=== PATIENT | female | born 1965 | race Caucasian/White ===

== ENCOUNTER → 2017-08-06 | Outpatient (CLI) | payer OTHER ==
[~2017-08-06] MED LIST: ALBU90OI6 INH; Androgel2.5 GM TOP; FLONASE ALLERG9.9 ML; FLUT1DIS8 INH; Imitrex25 MG PO; ONDA4ODT MM; PROGESTERONE100 MG PO; Premarin0.3 MG PO; QVAR REDIHALE10.6 G1 INH; TRAM50 PO; ZOLP10 PO
[2017-08-06 18:14] LABS: BASOPHILS ABSOLUTE AUTO 0.09 K/mm3 (0.00-0.23); BASOPHILS PERCENT AUTO 1 % (0-2); EOSINOPHILS PERCENT AUTO 16 % (0-6); Hematocrit 44.6 % (33.0-51.0); Hemoglobin 14.5 g/dL (11.5-16.0); IMMATURE GRAN ABSOLUTE AUTO 0.02 K/mm3 (0.00-0.10); IMMATURE GRAN PERCENT AUTO 0 % (0-1); LYMPHOCYTES ABSOLUTE AUTO 1.79 K/mm3 (0.84-5.20); LYMPHOCYTES PERCENT AUTO 25 % (21-46); MONOCYTES ABSOLUTE AUTO 0.44 K/mm3 (0.16-1.47); MONOCYTES PERCENT AUTO 6 % (4-13); Mean Corpuscular HGB 29.2 pg (26.0-34.0); Mean Corpuscular HGB Conc 32.5 g/dL (31.5-36.5); Mean Corpuscular Volume 90 fL (80-100); Mean Platelet Volume 10.5 fL (9.1-12.4); NEUTROPHILS ABSOLUTE AUTO 3.64 K/mm3 (1.96-9.15); NEUTROPHILS PERCENT AUTO 51 % (41-73); Platelet Count 321 K/mm3 (150-400); RDW Coefficient Variation 13.6 % (11.7-14.2); RDW Standard Deviation 45.1 fL (35.1-46.3); Red Blood Cell Count 4.97 M/mm3 (3.80-5.20); White Blood Cell Count 7.08 K/mm3 (4.00-11.30)
[2017-08-06 19:32] LABS: Alanine Aminotransfer (ALT/SGP 29 U/L (12-78); Albumin, Blood 4.1 g/dL (3.4-5.0); Albumin/Globulin Ratio 1.4 (0.8-1.8); Alk Phos 65 U/L (50-136); Anion Gap 8 mmol/L (6-16); Bilirubin, Total 0.6 mg/dL (0.1-1.0); Blood Urea Nitrogen 18 mg/dL (8-24); CHOL/HDL RATIO 4.8; CO2, Blood 26 mmol/L (21-32); Chloride, Blood 105 mmol/L (98-108); Cholesterol 251 mg/dL (50-200); Free Thyroxine 0.77 ng/dL (0.70-1.60); Globulin, Blood 2.9 g/dL (2.2-4.0); Glucose, Blood 77 mg/dL (70-99); HDL Cholesterol 52 mg/dL (>39); LDL/HDL RATIO 3.3; Low Density Lipoprotein Chol 173 mg/dL (0-110); Potassium, Blood 4.1 mmol/L (3.5-5.5); Sodium, Blood 139 mmol/L (136-145); Triglycerides 128 mg/dL (30-160); Very Low Density Lipoprot Chol 25 mg/dL (6-32)
[2017-08-06 19:40] LABS: Aspartate Aminotrans (AST/SGOT 16 U/L (12-37); Bun/Creatinine Ratio 22.8 (12.0-20.0); Creatinine, Blood 0.79 mg/dL (0.40-1.00); Glomerular Filtration Rate >60 (60-)
== END | disposition home or self-care (01) ==
LOC: LAB 08:30
PROVIDERS: Nurse Practitioner Adult Health
DX: J45.20 Mild intermittent asthma, uncomplicated (principal); M77.12 Lateral epicondylitis, left elbow; F41.1 Generalized anxiety disorder; F32.9 Major depressive disorder, single episode, unspecified
CPT/HCPCS: 80053; 80061; 84439; 84443; 85025

== ENCOUNTER → 2017-11-11 | Outpatient (CLI) | payer OTHER | END | disposition home or self-care (01) | LOC: LAB SHORT 17:25 → LAB EV 17:25 | DX: N39.0 Urinary tract infection, site not specified (principal) | CPT/HCPCS: 87077; 87086; 87186 ==

== ENCOUNTER → 2018-03-17 | Outpatient (CLI) | payer OTHER | LOC: LAB SHORT 18:41 → LAB 18:41 | DX: N76.0 Acute vaginitis (principal) | CPT/HCPCS: 87070; 87205 ==

== ENCOUNTER 2018-05-12 06:18 | Emergency (ER) | payer OTHER ==
[~2018-05-12] VITALS: Ht 175.3 cm; Wt 77.1 kg
[2018-05-12] MEDS ORDERED: ZOLP10 PO (06:37)
[2018-05-12] MEDS ORDERED: FLUT1DIS8 INH (06:37)
[2018-05-12] MEDS ORDERED: ALBU90OI6 INH (06:38)
[2018-05-12] MEDS ORDERED: Premarin0.3 MG PO (06:39)
[2018-05-12] MEDS ORDERED: FLONASE ALLERG9.9 ML (06:40)
[2018-05-12] MEDS ORDERED: PROGESTERONE100 MG PO (06:40)
[2018-05-12] MEDS ORDERED: Androgel2.5 GM TOP (06:41)
[2018-05-12 06:58] LABS: BASOPHILS PERCENT AUTO 1 % (0-2); EOSINOPHILS ABSOLUTE AUTO 2.66 K/mm3 (0.00-0.68); EOSINOPHILS PERCENT AUTO 26 % (0-6); Hematocrit 46.9 % (33.0-51.0); IMMATURE GRAN ABSOLUTE AUTO 0.05 K/mm3 (0.00-0.10); IMMATURE GRAN PERCENT AUTO 1 % (0-1); LYMPHOCYTES ABSOLUTE AUTO 1.74 K/mm3 (0.84-5.20); LYMPHOCYTES PERCENT AUTO 17 % (21-46); MONOCYTES ABSOLUTE AUTO 0.58 K/mm3 (0.16-1.47); MONOCYTES PERCENT AUTO 6 % (4-13); Mean Corpuscular HGB 28.9 pg (26.0-34.0); Mean Corpuscular Volume 90 fL (80-100); Mean Platelet Volume 10.1 fL (9.1-12.4); NEUTROPHILS ABSOLUTE AUTO 5.03 K/mm3 (1.96-9.15); NEUTROPHILS PERCENT AUTO 50 % (41-73); Platelet Count 357 K/mm3 (150-400); RDW Coefficient Variation 13.9 % (11.7-14.2); RDW Standard Deviation 46.5 fL (35.1-46.3); Red Blood Cell Count 5.19 M/mm3 (3.80-5.20); White Blood Cell Count 10.16 K/mm3 (4.00-11.30)
[2018-05-12 07:10] LABS: Anion Gap 10 mmol/L (6-16); Blood Urea Nitrogen 17 mg/dL (8-24); Bun/Creatinine Ratio 23.9 (12.0-20.0); CO2, Blood 22 mmol/L (21-32); Calcium, Blood 8.9 mg/dL (8.5-10.1); Chloride, Blood 108 mmol/L (98-108); Creatinine, Blood 0.71 mg/dL (0.40-1.00); Glomerular Filtration Rate >60 (60-); Glucose, Blood 94 mg/dL (70-99); Potassium, Blood 3.9 mmol/L (3.5-5.5); Sodium, Blood 140 mmol/L (136-145)
[2018-05-12] MEDS ORDERED: ONDA4ODT MM (09:00)
[2018-05-12] MEDS ORDERED: Imitrex25 MG PO (22:19)
== END 2018-05-12 09:20 | disposition home or self-care (01) ==
LOC: ER 06:18
PROVIDERS: Physician Assistant
DX: R55 Syncope and collapse (principal); F31.9 Bipolar disorder, unspecified; F41.9 Anxiety disorder, unspecified; J45.909 Unspecified asthma, uncomplicated; Z88.0 Allergy status to penicillin; Z88.2 Allergy status to sulfonamides; Z88.8 Allergy status to other drugs, medicaments and biological substances; Z79.899 Other long term (current) drug therapy; Z79.51 Long term (current) use of inhaled steroids
CPT/HCPCS: 36415; 80048; 85025; 93005; 93010; 96361; 96374; 96375; 96376; 99284-25; J1885; J2405; J7030

== ENCOUNTER 2018-06-24 16:23 | Emergency (ER) | payer OTHER ==
[~2018-06-24] VITALS: Ht 172.7 cm; Wt 78.5 kg
[~2018-06-24 16:23] MED LIST changes: -QVAR REDIHALE10.6 G1 INH; -TRAM50 PO
[2018-06-24] MEDS ORDERED: QVAR REDIHALE10.6 G1 INH (16:42)
[2018-06-24] MEDS ORDERED: TRAM50 PO (17:25)
== END 2018-06-24 17:56 | disposition home or self-care (01) ==
LOC: ER 16:23
DX: S82.62XA Displaced fracture of lateral malleolus of left fibula, initial encounter for closed fracture (principal); J45.909 Unspecified asthma, uncomplicated; F31.9 Bipolar disorder, unspecified; F41.9 Anxiety disorder, unspecified; Z88.0 Allergy status to penicillin; Z88.2 Allergy status to sulfonamides; Z88.8 Allergy status to other drugs, medicaments and biological substances; Z79.899 Other long term (current) drug therapy; W01.0XXA Fall on same level from slipping, tripping and stumbling without subsequent striking against object, initial encounter
CPT/HCPCS: 29505; 73610; 99283-25

== ENCOUNTER → 2018-08-05 | Outpatient (CLI) | payer OTHER ==
[~2018-08-05] MED LIST changes: +QVAR REDIHALE10.6 G1 INH; +TRAM50 PO
[2018-08-05 17:56] LABS: Appearance, Urine Hazy (Clear); Bilirubin, Urine Neg (Neg); Blood, Urine 1+ (Neg); Color, Urine Yellow (P-Yellow); Glucose Qualitative, Urine Neg (Neg); Ketones, Urine Neg (Neg); Leukocyte Esterase, Urine 3+ (Neg); Nitrite, Urine Pos (Neg); Protein, Urine 1+ (Neg); Specific Gravity, Urine 1.025 (1.003-1.022); Urobilinogen, Urine NORM (Normal)
[2018-08-05 18:19] LABS: White Blood Cells, Urine 25-50 /hpf (0-5)
[2018-08-05 18:21] LABS: Bacteria Many /hpf
[2018-08-05 18:22] LABS: Squamous Epithelial Cells Mod /hpf (Few)
[2018-08-09 15:07] LABS: HPV 16 Negative (Negative); HPV 18 Negative (Negative); HPV OTHER HR TYPES Negative (Negative)
== END ==
LOC: LAB 17:27 → LAB SHORT 17:27
PROVIDERS: Registered Nurse Community Health
DX: Z12.4 Encounter for screening for malignant neoplasm of cervix (principal); R39.82 Chronic bladder pain
CPT/HCPCS: 81001; 87077; 87086; 87186; 87624; G0123

== ENCOUNTER → 2018-10-10 | Outpatient (CLI) | payer OTHER | END | disposition home or self-care (01) | LOC: LAB EV 18:00 → LAB SHORT 18:00 | DX: N39.0 Urinary tract infection, site not specified (principal) | CPT/HCPCS: 87077; 87086; 87186 ==

== ENCOUNTER → 2018-11-25 | Outpatient (CLI) | payer OTHER | END | disposition home or self-care (01) | LOC: LAB EV 08:37 → LAB SHORT 08:37 | DX: N39.0 Urinary tract infection, site not specified (principal) | CPT/HCPCS: 87077; 87086; 87186 ==